=== PATIENT | female | born 1995 | race Two or more races ===

== ENCOUNTER → 2021-02-24 15:02 | Outpatient (BNVA) | payer OTHER, SELFPAY | PROVIDERS: Visit Provider Advanced Practice Midwife | DX: Z32.01 Encounter for pregnancy test, result positive (principal); Z3A.00 Weeks of gestation of pregnancy not specified | CPT/HCPCS: 81025; 99202 ==

== ENCOUNTER 2021-03-04 14:43 | Outpatient (REF) | payer OTHER, SELFPAY ==
--- NOTE | ~2021-03-04 | US_ITS ---
EXAMINATION: OBSTETRICAL ULTRASOUND, FIRST TRIMESTER HISTORY: 25-year-old with the uncertain LMP Viability LMP: 01/03/2021 COMPARISON: None TECHNIQUE: Real time transabdominal imaging with color and M-mode Doppler. FINDINGS: A single, live IUP CRL of 12.7 mm c/w 7.4wks is noted. Heart Rate: 163 beats per minute. Both maternal ovaries are seen and appear normal. GESTATIONAL AGE: 1. GA from LMP: 8.4 wks 2. GA from AUA: 7.4 wks ESTIMATED DATE OF DELIVERY: 1. NORIS from LMP: 10/10/2021 2. NORIS from AUA: 10/17/2021 US/US OB <= 14 weeks fetus IMPRESSION: A single live IUP is noted CRL consistent with 7.6. Adjust the her NORIS to 10/17/2019 based on today's examination. Normal ovaries. No specific ultrasound followup appears needed at this time. The patient was advised that ultrasound cannot guarantee the of a normal . Thank you very much for this referral. This note was generated with a voice recognition program. Please excuse any errors which may have been overlooked during my review of this note. Sometimes these errors may affect the content or meaning of a given sentence.
== END 2021-03-04 14:44 | disposition home or self-care (01) ==
LOC: HO.US 14:43
PROVIDERS: Visit Provider Advanced Practice Midwife
DX: Z36.87 Encounter for antenatal screening for uncertain dates (principal)
CPT/HCPCS: 76801

== ENCOUNTER → 2021-03-11 10:08 | Outpatient (BNVA) | payer OTHER, SELFPAY | PROVIDERS: Visit Provider Advanced Practice Midwife | DX: Z32.01 Encounter for pregnancy test, result positive (principal) | CPT/HCPCS: 99212 ==

== ENCOUNTER 2021-03-21 14:33 | Outpatient (REF) | payer OTHER, SELFPAY ==
[2021-03-22 04:06] LABS: CT PCR DETECTED (Not Detect.); NG PCR NOT DETECTED (Not Detect.)
[2021-03-30 03:16] LABS: HPV 16 RNA NOT DETECTED (NOT DETECTED); HPV mRNA E6/E7 rflx Detected (Not Detected)
== END 2021-03-21 14:34 | disposition home or self-care (01) ==
LOC: HO.LAB 14:33
PROVIDERS: Visit Provider Advanced Practice Midwife
DX: Z01.419 Encounter for gynecological examination (general) (routine) without abnormal findings (principal); O26.891 Other specified pregnancy related conditions, first trimester; R12 Heartburn; Z3A.10 10 weeks gestation of pregnancy; Z79.899 Other long term (current) drug therapy
CPT/HCPCS: 81003; 87491; 87591; 87624; 87625; 88142; 99212

== ENCOUNTER 2021-03-30 12:10 | Outpatient (REF) | payer OTHER, SELFPAY ==
[2021-03-30 14:39] LABS: Hematocrit 37.4 % (37-47); Hemoglobin 12.4 g/dl (12.0-16.0); Mean Corpuscular HGB Conc 33.2 g/dl (31.0-35.0); Mean Corpuscular Hemoglobin 31.9 pg (27.0-33.0); Mean Corpuscular Volume 96.1 fL (80-98); Mean Platelet Volume 11.8 fL (9.4-12.3); Platelet Count 224 X10*3/uL (160-400); Red Blood Count 3.89 X10*6/uL (4.20-5.50); Red Cell Distribution Width 11.5 % (11.0-16.0); White Blood Count 5.4 X10*3/uL (4.8-10.8)
[2021-03-30 14:55] LABS: Glucose 1 Hour PP 50gm Dose 88 mg/dL (60-140)
[2021-03-30 15:01] LABS: Amphetamine Screen Urine Not Detected (Not Detect); Barbiturates, Urine Not Detected (Not Detect); Benzodiazepines Screen Urine Not Detected (Not Detect); Cannabinoid Screen Urine Not Detected (Not Detect); Cocaine Screen Urine Not Detected (Not Detect); Opiate Screen Urine Not Detected (Not Detect); Phencyclidine Screen Urine Not Detected (Not Detect)
[2021-03-30 15:15] LABS: Syphilis Screen Nonreactive (Nonreactive)
[2021-03-31 11:46] LABS: HBsAGNum1 0.14 S/CO (0.00-0.99); HIV AB/AG Nonreactive (Nonreactive); HIV Num 1 0.06 S/CO (0.00-0.99); Hepatitis B Surface Antigen Negative (Negative); ~HepC Num1 0.07 S/CO (0.00-0.79); ~Hepatitis C Antibody Nonreactive (Nonreactive)
== END 2021-03-30 12:11 | disposition home or self-care (01) ==
LOC: HO.LAB 12:10
PROVIDERS: Visit Provider Advanced Practice Midwife
DX: Z32.01 Encounter for pregnancy test, result positive (principal)
CPT/HCPCS: 80307; 85027; 86762; 86780; 86787; 86803; 86850; 86900; 86901; 87086; 87340; 87389

== ENCOUNTER → 2021-04-01 08:06 | Outpatient (BNVA) | payer OTHER, SELFPAY | PROVIDERS: Visit Provider Obstetrics & Gynecology | DX: Z34.90 Encounter for supervision of normal pregnancy, unspecified, unspecified trimester (principal); R87.613 High grade squamous intraepithelial lesion on cytologic smear of cervix (HGSIL); Z3A.11 11 weeks gestation of pregnancy | CPT/HCPCS: 57452; 99212 ==

== ENCOUNTER 2021-04-08 13:31 | Outpatient (REF) | payer OTHER, SELFPAY ==
--- NOTE | ~2021-04-08 | US_ITS ---
EXAMINATION: OBSTETRICAL ULTRASOUND, FIRST TRIMESTER HISTORY: 25-year-old at the 12 .4 weeks of gestation NT screening COMPARISON: 03/04/2021 TECHNIQUE: Real time transabdominal imaging with color and M-mode Doppler. FINDINGS: A single, live IUP CRL of 60.2 mm c/w 13.1wks is noted. Heart Rate: 161 beats per minute. Normal yolk sac seen. NT was 1.25.mm. NB Present The embryo appears sonographically wnl for this GA. Both maternal ovaries are seen and appear normal. GESTATIONAL AGE: 1. Established GA: 12.4 wks 2. GA from AUA: 13.1 wks ESTIMATED DATE OF DELIVERY: 1. Established NORIS: 10/17/2021 2. NORIS from AUA: 10/13/2021 US/US OB 1T nuc measure IMPRESSION: 1. A single live IUP 2. Size equals dates 3. NT of 1.25 mm MFM Consultation: I reviewed the ultrasound findings along with significance of NT measurement. The NT of less than 3mm is generally reassuring. However, the sensitivity for T21 detection is only 60%. I reviewed the availability of serum aneuploidy screening which includes cell-free DNA and placental protein based tests. I discussed the sensitivity, false-positive rate, and other limitations associated with each test. I also reviewed the availability of invasive diagnostic tests that are associated small but definite risk of miscarriage. We also reviewed the differences between screening tests and diagnostic tests. After our discussion, she opted for the First trimester screening that is based on cell-free DNA or non-invasive testing (NIPT). The result will be faxed to your office in approximately 7 days. A follow up at 18 weeks for survey has been scheduled. Thank you very much for this referral. Total time 20 minutes. The time spent was devoted to counseling the patient about the disease and diagnosis, coordinating care including reviewing her records, pertinent lab data and studies, as well as discussing diagnostic evaluation and workup, plan therapeutic interventions and future disposition of care. This includes any additional research needed to obtain further information in formulating the plan of care of this patient. This note was generated with a voice recognition program. Please excuse any errors which may have been overlooked during my review of this note. Sometimes these errors may affect the content or meaning of a given sentence.
== END 2021-04-08 13:32 | disposition home or self-care (01) ==
LOC: HO.US 13:31
PROVIDERS: Visit Provider Advanced Practice Midwife
DX: Z36.82 Encounter for antenatal screening for nuchal translucency (principal)
CPT/HCPCS: 76813

== ENCOUNTER 2025-06-24 17:46 | Emergency (ER) | payer OTHER, SELFPAY ==
[2025-06-24 17:56] VITALS: BP 109/72; PULSE 93; RESP 18; TEMP 36.3; O2SAT 100; BMI 25.0
--- NOTE | 2025-06-24 17:57 | ED.GENADULT ---
HPI - General Adult General Chief complaint: General Medical Stated complaint: sore throat/ear pain Time Seen by Provider: 06/24/25 21:16 Source: patient Mode of arrival: ambulatory Limitations: no limitations History of Present Illness ED Provider: Refugio ESTES HPI narrative: The patient is a 29-year-old female with a history of HPV and a previous chlamydia infection in 2020 presenting to the ED reporting 1 month ago she was suffering from throat pain with associated bilateral ear pain, was seen at a separate facility and prescribed antibiotics, patient reports symptoms improved over the next few days. Patient reports no recurrence of symptoms until 3-4 days ago when she developed recurrent sore throat with bilateral ear pain without associated fever, nausea, or vomiting. The patient has not taken any ypen-njd-fagjkya anti-inflammatories or other interventions/medicines for her symptoms in the 3 days prior to presenting in the ED. The patient also reports 2 days ago she noted some blood in her urine and experienced some right-sided flank pain. Patient denies associated dysuria, frequency, or hesitancy. The patient reports she has had Implanon for the past 4-6 months, and has not undergone menstruation since the Implanon was implanted. The patient reports hematuria is more prevalent in the morning when waking up and then improves throughout the day, however adamantly denies any irregular vaginal bleeding or vaginal discharge. The patient denies any recent sick contacts or trauma. Patient denies surgical abdominal history. Related Data Previous Rx's ?Medication ?Instructions ?Recorded doxylamine succinate 25 mg tablet 25 mg PO BEDTIME PRN sleep #30 tabs 02/24/21 (Unisom (doxylamine)) vitamins with calcium 1 tab PO DAILY #90 tabs 02/24/21 no.72-iron 27 mg-folic acid 1 mg tablet ( Vitamins Plus Low Iron) pyridoxine (vitamin B6) 25 mg 25 mg PO TID #90 tabs 02/24/21 tablet azithromycin 500 mg tablet 1,000 mg (2 x 500 mg) PO ONCE 1 03/24/21 (Zithromax) day #2 tabs Allergies Allergy/AdvReac Type Severity Reaction Status Date / Time No Known Allergies Allergy Verified 06/24/25 18:03 Review of Systems Review of Systems: Yes all other systems are reviewed and are negative [facility] Family History Family History (Updated 03/11/21 @ 10:54 by Ita Agee) Father Prostate CA Diabetes mellitus Paternal Grandmother Diabetes mellitus Paternal Aunt No problems noted. Social History Social History (Updated 03/11/21 @ 10:58 by Ita Agee) Household Members: Significant Other and Children Housing: Apartment Are you a primary personal caregiver to a significant other at home: No Do you presently have visiting nurse or other home services: No Alcohol intake: never Patient Tobacco Use Status: Never used Tobacco Trauma History: none Advance Directives: No Advance Directives Information Provided: Yes Do you have a plan to hurt others: No Plan service: No Current occupational status: unemployed Gender identity: Female Physical Exam ED Vital Signs: Vital Signs - 24 hr 06/24/25 17:56 Temperature 97.4 F Pulse Rate 93 Respiratory Rate 18 Blood Pressure 109/72 Pulse Oximetry 100 Oxygen Delivery Method Room Air BMI result Body Mass Index 25.0 CONSTITUTIONAL: The patient appears non-toxic, well nourished and in no acute distress. Vital signs as documented. HEAD: Atraumatic, normocephalic. EYES: EOMs grossly intact, pupils equal, conjunctiva clear, no exudate. ENT: Nares patent, no discharge. Airway patent, no audible stridor, visible mucosa is pink and moist without noted lesions. Posterior pharynx demonstrates midline nonedematous uvula, no peritonsillar or tonsillar swelling, no tonsillar exudate, bilateral TMs are unremarkable. NECK: Trachea is midline, no obvious masses or gross abnormalities. CHEST: Symmetric movement, normal appearance. LUNGS: LS present and CTAB, no w/r/r. Non-labored work of breathing. CARDIAC: Regular Rhythm, S1/S2 appreciated, no murmurs, rubs or gallops. ABDOMEN: Abdomen soft and non-tender x4 quadrants, no palpable masses or organomegaly. Negative CVAT bilaterally. : Deferred. EXTREMITIES: Normal tone, moves all extremities spontaneously without reported pain. No obvious acute injury or deformity noted. NEURO: Alert and oriented x3, CN II-XII appear grossly intact. Cerebellar Functioning grossly intact. No obvious sensory or motor deficits. Speech clear and appropriate. PSYCH: normal affect, appropriate eye contact, fluid speech, with appropriate response to questioning. No reported suicidality or homicidality. SKIN: Warm, dry, color appropriate, normal turgor. No rashes noted. Course Course Course Narrative: This is an RME: Additional HPI, ROS, PE not included below will be deferred to primary provider. RME assessment and note performed by: Rosey De La Fuente PA-C This is a [id number]-female who presents to the ER with a complaint of ear pain and sore throat. Was seen at another hospital and was started on amoxicillin, however symptoms did not improve. Patient states that since yesterday she has had your pain it a sore throat. Patient also is reporting dysuria, and foul-smelling urine. Plan: Labs, UA, viral, strep Medications Administered Discontinued Medications Generic Name Dose Route Start Last Admin Trade Name Freq PRN Reason Stop Dose Admin Acetaminophen 975 mg 06/24/25 21:43 06/24/25 22:50 Acetaminophen 325 Mg Tablet PO 06/24/25 21:44 975 mg ONCE ONE Administration Ibuprofen 600 mg 06/24/25 21:43 06/24/25 22:51 Ibuprofen 600 Mg Tablet PO 06/24/25 21:44 600 mg ONCE ONE Administration Medical Decision Making Medical Decision Making MDM Narrative: 9:54 PM 06/24/2025 (Romero ESTES): The patient is a 29-year-old female with a history of HPV and a previous chlamydia infection in 2020 presenting to the ED reporting 1 month ago she was suffering from throat pain with associated bilateral ear pain, was seen at a separate facility and prescribed antibiotics, patient reports symptoms improved over the next few days. Patient reports no recurrence of symptoms until 3-4 days ago when she developed recurrent sore throat with bilateral ear pain without associated fever, nausea, or vomiting. The patient has not taken any aztk-qcr-xbjpaco anti-inflammatories or other interventions/medicines for her symptoms in the 3 days prior to presenting in the ED. The patient also reports 2 days ago she noted some blood in her urine and experienced some right-sided flank pain. Patient denies associated dysuria, frequency, or hesitancy. The patient reports she has had Implanon for the past 4-6 months, and has not undergone menstruation since the Implanon was implanted. The patient reports hematuria is more prevalent in the morning when waking up and then improves throughout the day, however adamantly denies any irregular vaginal bleeding or vaginal discharge. The patient denies any recent sick contacts or trauma. Patient denies surgical abdominal history. On exam the patient has an unremarkable posterior pharynx, no tonsillar exudate, no tonsillar or peritonsillar swelling, no anterior cervical lymphadenopathy, bilateral TMs are unremarkable. The patient's abdominal exam is nontender, negative CVAT bilaterally. The patient's laboratory evaluation demonstrates no leukocytosis, anemia, electrolyte abnormality, or JENNIFER. LFTs are unremarkable. TSH unremarkable. Swabs are negative for COVID, influenza, and strep. Patient's urinalysis is pending. At this time we will treat the patient with Tylenol, ibuprofen, and await urinalysis results. The patient's exam and presentation of symptoms is not consistent with strep throat, patient meets 0/4 Centor criteria and swab is negative. There was no indication for antibiotics at this time. We will treat any evidence of UTI, and if no evidence of UTI but positive hematuria we will consider CT imaging of the abdomen to evaluate for ureterolithiasis. Of note this provider advised patient that she may be suffering from indolent vaginal bleeding given the increased prevalence in the morning, and also seeing as she just initiated Implanon few months ago, however patient is adamant she is not having any vaginal bleeding. 12:04 AM 06/25/2025 (Romero ESTES): The patient's urinalysis has resulted and shows trace blood on dipstick but no RBCs on microscopic exam, there was no evidence of infection. At this time patient is likely suffering from a viral URI, seeing as there is no yogi hematuria, there is no indication for CT imaging. Patient will be discharged with instructions to continue supportive care and follow up with PCP for repeat urinalysis if morning hematuria persists. Admission/Observation Consideration of admission/observation: Escalation of care including admission/observation considered Lab Data MDM Lab Attestation statement: I reviewed the patient's lab results. 06/24/25 18:52 06/24/25 18:52 Labs: Lab Results 06/24/25 06/24/25 Range/Units 18:52 22:13 WBC 9.0 (4.8-10.8) X10*3/uL RBC 3.98 L (4.20-5.50) X10*6/uL Hgb 12.5 (12.0-16.0) g/dl Hct 38.0 (37.0-47.0) % MCV 95.5 (80.0-98.0) fL MCH 31.4 (27.0-33.0) pg MCHC 32.9 (31.0-35.0) g/dl RDW 12.2 (11.0-16.0) % Plt Count 324 (160-400) X10*3/uL MPV 10.8 (9.4-12.3) fL Immature Gran % (Auto) 0.2 (0.0-0.4) % Neut % (Auto) 64.7 (45-73) % Lymph % (Auto) 22.4 (20-40) % [place] % (Auto) 8.8 (2-11) % Eos % (Auto) 3.3 (0-4) % Baso % (Auto) 0.6 (0-2) % Lymph # (Auto) 2.0 (1.2-4.9) X10*3/uL [place] # (Auto) 0.8 (0.1-1.2) X10*3/uL Eos # (Auto) 0.3 (0.0-0.4) X10*3/uL Baso # (Auto) 0.1 (0.0-0.2) X10*3/uL Abs Immat Gran (auto) 0.02 (0.00-0.03) X10*3/uL Absolute Neuts (auto) 5.8 (2.0-8.3) x10*3/uL Absolute Nucleated RBC 0.000 (0.0-0.012) X10*3/uL Nucleated RBC % (auto) 0.0 (0.0-0.2) /100WBC Sodium 142 (135-145) mmol/L Potassium 4.2 (3.3-5.1) mmol/L Chloride 108 (96-108) mmol/L Carbon Dioxide 29 (22-29) mmol/L Anion Gap 9 L (12-20) BUN 12 (9-16) mg/dL Creatinine 0.64 (0.5-1.4) mg/dL Estim Creat Clear Calc 120.2 Estimated GFR > 60 Random Glucose 94 (60-115) mg/dL Calcium 9.3 (8.4-10.2) mg/dL Total Bilirubin 0.2 (0.0-1.0) mg/dL Direct Bilirubin < 0.2 (0.0-0.5) mg/dL AST 28 (5-31) U/L ALT 27 (0-31) U/L Alkaline Phosphatase 118 H (39-117) U/L Total Protein 8.2 H (6.5-8.0) g/dL Albumin 4.7 (3.5-5.0) g/dL TSH 1.40 (0.32-4.0) uIU/mL Urine Color Yellow Urine Appearance Clear Urine pH 6.5 (5.0-9.0) Ur Specific [place] <= 1.005 (1.005-1.025) Urine Protein Negative (Neg-Trace) mg/dL Urine Glucose (UA) Negative (Negative) mg/dL Urine Ketones Negative (Negative) mg/dL Urine Blood Trace H (Negative) Urine Nitrite Negative (Negative) Ur Leukocyte Esterase Negative (Negative) Urine RBC 0-2 (0-2) /HPF Urine WBC 0-5 (0-5) /HPF Ur Squamous Epith Cells 0-2 (0-2) /HPF Urine Bacteria None Seen (None Seen) Hyaline Casts 0-2 (0-2) /LPF COVID-19 (TATIANA) Negative (Negative) COVID-19 Clin Com See Note Influenza Type A (MOHSEN) Negative (Negative) Influenza Type B (MOHSEN) Negative (Negative) Influenza A & B Note See Note S. pyogenes GrpA MOHSEN Negative (Negative) Prescription Management I considered prescription management with: Pain Medication Discharge Plan Discharge Clinical Impression: Viral upper respiratory infection Patient Disposition: Home, Self-Care Instructions: Viral Syndrome (ED) Additional Instructions: [place] por elegir el [facility] del [facility] M?dico [place] para contreras atenci?n m?dica hoy. Afortunadamente, contreras evaluaci?n de laboratorio, hisopado viral, hisopado para estreptococos y examen de hoy son tranquilizadores. Darnell negativo en las pruebas de influenza, COVID o faringitis estreptoc?cica (bacteriana). Contreras examen no muestra evidencia de mane infecci?n bacteriana del o?do. En trupti momento, no hay indicaci?n de ingreso hospitalario ni de observaci?n continua en urgencias, y es seguro darle de araceli. Contreras dolor de garganta y de o?do probablemente sea secundario a mane infecci?n viral de las v?as respiratorias superiores. [place] deber?a mejorar con antiinflamatorios y desaparecer en los pr?ximos 5 a 7 d?as. Por favor, consulte con contreras m?dico de cabecera para mane reevaluaci?n de lionel s?ntomas. Contreras an?lisis de orina no mostr? evidencia de infecci?n aguda. Se detect? mane blaze?a cantidad de brooklynn en la yolanda reactiva; sin embargo, en el examen microsc?porfirio m?s sensible, no se detectaron gl?bulos rojos. En trupti momento, no hay indicaci?n para mane tomograf?a computarizada de emergencia ni para antibi?ticos. La presencia de brooklynn en la orina puede estar relacionada con un manchado lento o sangrado uterino debido a los cambios hormonales posteriores a contreras nuevo anticonceptivo reciente. Trupti es un efecto secundario muy com?n que puede ocurrir entre 3 y 6 meses despu?s de la colocaci?n del anticonceptivo implantable. Si la brooklynn en la orina persiste, consulte con contreras m?dico de cabecera o con contreras ginec?logo para mane evaluaci?n adicional. Puede danilo dosis alternas (escalonadas) de ibuprofeno 600 mg y Tylenol 1000 mg cada 4 horas seg?n sea necesario para la congesti?n, la fiebre o el dolor adicional. Mant?ngase radha hidratada y descanse lo suficiente. Consulte con contreras m?dico de cabecera para mane reevaluaci?n, un manejo adicional de lionel s?ntomas y atenci?n preventiva continua. Si no tiene un m?dico de cabecera, llame a [facility] al [phone] para programar darian nuevo. Mientras espera a que le asignen un nuevo m?dico de cabecera, puede llamar a nuestra Cl?reilly de Atenci?n sin Beatrice Previa al [phone] para necesidades que no yee de emergencia. Por favor, regrese a urgencias si presenta un cambio repentino o grave en lionel s?ntomas, fiebre superior a 38 ?C que no mejora con Tylenol o ibuprofeno, v?mitos recurrentes o cualquier otro s?ntoma o inquietud nuevo o que empeore. Thank you for choosing [facility]'s Emergency Department for your care today. Thankfully your laboratory evaluation, viral swabs, strep swab, and exam today are all reassuring. You tested negative for influenza, COVID, or streptococcal (bacterial) pharyngitis. Your exam shows no evidence of a bacterial ear infection. At this time there is no indication for admission to the hospital or continued ED observation, and it is safe to discharge you home. Your sore throat and ear pain is likely secondary to a viral upper respiratory infection. This should improve with anti-inflammatory medication and resolve in the next 5-7 days. Please follow up with the your primary care provider for re-evaluation of your symptoms. Your urinalysis showed no evidence of acute infection. There was a trace amount of blood detected on the dipstick however on the more sensitive microscopic examination there were no red blood cells. At this time there is no indication for emergent CT imaging, or antibiotics. The urine in your blood may be related to slow spotting/uterine bleeding from hormonal changes following your recent new control. This is a very common side effect that can occur in the 1st 3-6 months after placement of implantable control. Please follow up with the your primary care provider and/or your OBGYN for additional evaluation if the blood in your urine persists. You may take alternating (staggered) doses of ibuprofen 600mg and Tylenol 1000mg every 4 hours as needed for any congestion, fever, or additional pain. Please stay well hydrated and get plenty of rest. Please follow up with your primary care physician for re-evaluation, additional management of your symptoms, and continued preventative care. If you do not have a primary care physician, please call the [facility] at [phone] to establish a new primary care physician. While waiting to establish your new primary care physician, you can call our Walk-in Care Clinic at [phone] for non-emergency needs. Please return to the emergency department if you develop a severe or sudden change in your symptoms, a fever over 100.4 that does not improve with Tylenol or Ibuprofen, recurrent vomiting, or any other new or worsening symptoms or concerns. Prescriptions: No Action azithromycin [Zithromax] 500 mg tablet 1,000 mg PO ONCE 1 Days Qty: 2 0RF Vitamin Plus Low Iron 27 mg iron- 1 mg tablet 1 tab PO DAILY Qty: 90 3RF pyridoxine (vitamin B6) 25 mg tablet 25 mg PO TID Qty: 90 1RF Unisom (doxylamine) 25 mg tablet 25 mg PO BEDTIME PRN (Reason: sleep) Qty: 30 1RF Print Language: Indonesian
--- OUTSIDE RECORDS SUMMARY | 2025-06-24 18:53 | XMS_ITS | Clinical Summary ---
Author Organization [facility] it Address [address] [place] [address] Care Team Providers Care Hvac Service Technician Name Role Phone Unavailable Primary Care Provider Unavailabl e Social History Tobacco Use Types Packs/Day Years Used Date Smoking Tobacco: Never Assessed Comments Unknown Sex and Gender Information Value Date Recorded Sex Assigned at Not on file Legal Sex Female 5:00 AM EST Gender Identity Not on file Sexual Orientation Not on file Plan of Treatment Health Maintenance Due Date Last Done Comments DTaP,Tdap,and Td Vaccines (1 - Tdap) 2013 Hepatitis B Vaccines (1 of 3 - 19+ 3-dose series) 2013 Cervical Cancer Screening: P ap Smear 2015 HPV Vaccines (1 - 3-dose SCD M series) 2021 Depression Screening 09/24/2024 COVID-19 Vaccine ( - 2023-2 5 season) 2025 Influenza Vaccine (#1) 2025 RSV Immunization Adult Patie nts (1 - 1-dose 75+ series) 2069 HIB Vaccines Aged Out No longer eligi ble based on patient's age to complete this topic Hepatitis A Vaccines Aged Out No long er eligible based on patient's age to complete this topic IPV Vaccines Aged Out No longer eligi ble based on patient's age to complete this topic MMR Vaccines Aged Out No longer eligi ble based on patient's age to complete this topic Meningococcal ACWY Vaccine Aged Out N o longer eligible based on patient's age to complete this topic Meningococcal B Vaccine Aged Out No l onger eligible based on patient's age to complete this topic Pneumococcal Vaccine: Pediat rics (0 to 5 Years) and At-Risk Patients (6 to 49 Years) Aged Out No longer eligible b ased on patient's age to complete this topic RSV Immunization Patients Un mai 20 months Aged Out No longer eligible b ased on patient's age to complete this topic Varicella Vaccines Aged Out No longer eligible based on patient's age to complete this topic Advance Directives Documents on File Type Date Recorded Patient Interactive Media Marketing Director Expl anation Health Care Decision (hx) 05/10/2020 AD MCKEON DIRECTIVE Health Care Decision (hx) 05/10/2020 AD MCKEON DIRECTIVE
[2025-06-24 18:58] LABS: MANUAL DIFF FLAG NO
[2025-06-24 18:59] LABS: Hematocrit 38.0 % (37.0-47.0); Hemoglobin 12.5 g/dl (12.0-16.0); Imm Gran Abs Auto 0.02 X10*3/uL (0.00-0.03); Imm Gran Pct Auto 0.2 % (0.0-0.4); Lymphocytes Absolute Auto 2.0 X10*3/uL (1.2-4.9); Mean Corpuscular HGB Conc 32.9 g/dl (31.0-35.0); Mean Corpuscular Hemoglobin 31.4 pg (27.0-33.0); Mean Corpuscular Volume 95.5 fL (80.0-98.0); NRBC Abs Auto 0.000 X10*3/uL (0.0-0.012); NRBC Pct Auto 0.0 /100WBC (0.0-0.2); Platelet Count 324 X10*3/uL (160-400); Red Blood Count 3.98 X10*6/uL (4.20-5.50); White Blood Count 9.0 X10*3/uL (4.8-10.8)
[2025-06-24 19:21] LABS: Alanine Aminotransferase 27 U/L (0-31); Albumin Level 4.7 g/dL (3.5-5.0); Alkaline Phosphatase 118 U/L (39-117); Anion Gap 9 (12-20); Aspartate Amino Transferase 28 U/L (5-31); Blood Urea Nitrogen 12 mg/dL (9-16); Calcium 9.3 mg/dL (8.4-10.2); Carbon Dioxide 29 mmol/L (22-29); Chloride 108 mmol/L (96-108); Creatinine Clr Calc Pharmacy 120.2; Estimated Glomerular Filt Rate > 60; Potassium 4.2 mmol/L (3.3-5.1); Sodium 142 mmol/L (135-145); Total Protein 8.2 g/dL (6.5-8.0)
[2025-06-24 19:27] LABS: COVID-19 Test Negative (Negative); IDNOW Serial# 152EDE1D; IDNOW Serial# 16C4AD1C; IDNOW Serial# 6674DD1D; Influenza B2 Negative (Negative); Strep A Nucleic Acid Negative (Negative)
[2025-06-24 22:21] LABS: Appearance Urine Clear; Glucose Urine UA Negative (Negative); PH 6.5 (5.0-9.0); Specific Gravity - Urine <= 1.005 (1.005-1.025); UMIC TRIGGER UACC YES
--- NOTE | 2025-06-24 22:52 | PC.NURSE ---
pt medicated per mar.
[2025-06-25 00:21] VITALS: BP 117/65; PULSE 71; RESP 18; TEMP 36.7; O2SAT 100
--- NOTE | 2025-06-25 00:37 | PC.NURSE ---
reviewed discharge instructions with pt pt verbalized understanding,no sign of distress. pt ambulated upon discharge with a steady gait.
[2025-06-25 00:38] VITALS: BP 117/65; PULSE 71; RESP 18; TEMP 36.7; O2SAT 100
== END 2025-06-25 00:39 | disposition home or self-care (01) ==
PROVIDERS: Physician Assistant Medical; Emergency Provider Student in an Organized Health Care Education/Training Program
DX: J06.9 Acute upper respiratory infection, unspecified (principal); J02.9 Acute pharyngitis, unspecified; H92.03 Otalgia, bilateral; R31.9 Hematuria, unspecified; Z03.818 Encounter for observation for suspected exposure to other biological agents ruled out
CPT/HCPCS: 80048; 80076; 81001; 84443; 85025; 87502; 87635; 87651; 99283; 99284